=== PATIENT | female | born 1980 | race Caucasian/White ===

== ENCOUNTER 2018-07-03 19:03 | Emergency (ER) | payer BC, SELFPAY ==
[2018-07-03 20:49] LABS: Urine Blood NEGATIVE (NEG); Urine Glucose NEGATIVE (NEG); Urine Protein NEGATIVE (NEG); Urine Specific Gravity 1.025 (1.005-1.030)
[2018-07-03 21:24] LABS: Absolute Lymphocytes (CBC) 2.7 K/uL (0.7-4.9); Absolute Monocytes 0.7 K/uL (0.1-1.3); Absolute Neutrophil 8.6 K/uL (1.8-8.0); Basophils % 0.4 % (0-1.3); Eosinophils % 0.6 % (0-4.4); Lymphocytes % 22.6 % (15.3-44.8); MPV 9.7 fL (7.6-11.3); Monocytes % 5.4 % (3.3-12.3); RBC Red Blood Cell Count 4.45 M/uL (3.86-4.86)
[2018-07-03 21:39] LABS: Albumin 3.6 g/dL (3.4-5.0); Bilirubin Direct 0.1 mg/dL (0-0.2); Bilirubin Total 0.3 mg/dL (0.2-1.0); Potassium 3.4 mmol/L (3.5-5.1); Protein, Total 8.2 g/dL (6.4-8.2)
[2018-07-03] MEDS ORDERED: FENTANYL CITR 100 MCG/2 ML ONE (22:49)
[2018-07-03] MEDS ORDERED: CIPROFLOXACIN 400mg IV 400 MG/200 ML BAG IV ONE (22:49)
[2018-07-03] MEDS ORDERED: ONDANSETRON 4 MG/2 ML VIAL ONE (22:49)
[2018-07-03] MEDS ORDERED: METRONIDAZOLE 500mg IVPB 500 MG/100 ML BAG IV ONE (22:49)
--- NOTE | 2018-07-04 01:28 | ER ---
Nurse's Notes [facility] Name: Elvia Marlow Age: 37 yrs Sex: Female : 1980 Arrival Date: 07/03/2018 Time: 19:05 Bed 5 Private MD: Haresh Chao R Diagnosis: Abdominal tenderness;Other ovarian cysts;Type 2 diabetes mellitus;Left sided colitis;Diverticular disease of intestine;Diverticulitis of large intestine without perforation or abscess without bleeding Presentation: 07/03 19:14 Presenting complaint: Patient states: she is having lower abdominal pain since Monday bb with some diarrhea on Monday denies vomiting pain radiates to back and is intermittent with increased intensity denies burning with urination. Transition of care: patient was not received from another setting of care. Onset of symptoms was June 30, 2018. Risk Assessment: Do you want to hurt yourself or someone else? Patient reports no desire to harm self or others. Initial Sepsis Screen: Does the patient meet any 2 criteria? No. Patient's initial sepsis screen is negative. Does the patient have a suspected source of infection? No. Patient's initial sepsis screen is negative. Care prior to arrival: None. 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 - Social history:: Smoking status: Patient/guardian denies using tobacco, Patient uses alcohol, but reports only rare drinking. Patient/guardian denies using street drugs. - Ebola Screening: : No symptoms or risks identified at this time. - Family history:: not pertinent. Screenin:12 Abuse screen: Denies threats or abuse. Nutritional screening: No deficits noted. ea Tuberculosis screening: No symptoms or risk factors identified. Fall Risk None identified. Assessment: 21:11 General: Appears uncomfortable, Behavior is calm, cooperative, appropriate for age. ea Pain: Complains of pain in suprapubic area Pain radiates to buttocks and pelvis. Neuro: Level of Consciousness is awake, alert, obeys commands, Oriented to person, place, time, situation. Respiratory: Airway is patent Respiratory effort is even, unlabored, Respiratory pattern is regular, symmetrical. GI: Abdomen is non-distended, Bowel sounds present X 4 quads. Abd is soft and non tender X 4 quads. Derm: Skin is pink, warm \T\ dry. Musculoskeletal: Circulation, motion, and sensation intact. 22:36 Reassessment: Patient appears in no apparent distress at this time. Patient and/or tl2 family updated on plan of care and expected duration. Pain level reassessed. Patient is alert, oriented x 3, equal unlabored respirations, skin warm/dry/pink. pt returned from US, no questions or concerns at this time. 07/04 00:00 Reassessment: Patient appears in no apparent distress at this time. Patient and/or tl2 family updated on plan of care and expected duration. Pain level reassessed. Patient is alert, oriented x 3, equal unlabored respirations, skin warm/dry/pink. 01:10 Reassessment: Patient appears in no apparent distress at this time. Patient and/or tl2 family updated on plan of care and expected duration. Pain level reassessed. Patient is alert, oriented x 3, equal unlabored respirations, skin warm/dry/pink. pt denies pain medication at this time due to having to drive herself home. Awaiting CT results. 02:11 Reassessment: Patient appears in no apparent distress at this time. Patient and/or tl2 family updated on plan of care and expected duration. Pain level reassessed. Patient is alert, oriented x 3, equal unlabored respirations, skin warm/dry/pink. pt verbalized understanding of discharge instructions, need for follow up and prescription usage Patient states feeling better. Vital Signs: 07/03 19:19 BP 141 / 86; Pulse 85; Resp 16 S; Temp 97.8(O); Pulse Ox 99% on R/A; Weight 114.76 kg bb (R); Height 5 ft. 2 in. (157.48 cm) (R); Pain 6/10; 22:36 BP 143 / 78; Pulse 74; Resp 18; Pulse Ox 99% on R/A; tl2 23:55 BP 122 / 69; Pulse 77; Resp 18; Pulse Ox 98% on R/A; tl2 07/04 01:00 BP 114 / 68; Pulse 77; Resp 18; Pulse Ox 97% on R/A; tl2 07/03 19:19 Body Mass Index 46.27 (114.76 kg, 157.48 cm) bb ED Course: 07/03 19:05 Patient arrived in ED. sb2 19:05 Haresh Chao MD is Private Physician. sb2 19:16 Triage completed. bb 19:19 Arm band placed on left wrist. Patient placed in waiting room, Patient notified of wait bb time. 21:07 Gala Sue, JESUS is Primary Nurse. ea 21:12 Patient has correct armband on for positive identification. Bed in low position. Call ea light in reach. Side rails up X2. 21:12 Inserted saline lock: 20 gauge in right antecubital area, using aseptic technique. ea Blood collected. 21:38 Andre Davis MD is Attending Physician. guerline 22:08 Oral contrast given. vr 22:31 US Transvaginal Study (Probe) In Process Unspecified. EDMS 02 00:51 CT Abd/Pelvis - W/Contrast In Process Unspecified. EDMS 00:52 CT completed. Patient tolerated procedure well. Patient moved to CT via wheelchair. Patient moved back from CT. 01:00 No provider procedures requiring assistance completed. tl2 01:26 Haresh Chao MD is Referral Physician. guerline 01:27 Lenny Guerin MD is Referral Physician. guerline 02:13 IV discontinued, intact, bleeding controlled, No redness/swelling at site. Pressure tl2 dressing applied. Administered Medications: 07/03 22:47 Drug: Zofran 4 mg Route: IVP; Site: right antecubital; ea 23:30 Follow up: Response: No adverse reaction; Nausea is decreased tl2 22:48 Drug: fentaNYL (PF) 25 mcg Route: IVP; Site: right antecubital; ea 23:30 Follow up: Response: No adverse reaction; Pain is decreased tl2 22:48 Drug: Cipro 400 mg Volume: 200 ml; Route: IVPB; Infused Over: 60 mins; Site: right ea antecubital; 07/04 00:00 Follow up: IV Status: Completed infusion tl2 07/03 23:55 Drug: Flagyl 500 mg Volume: 100 ml; Route: IVPB; Rate: 200 ml/hr; Infused Over: 30 tl2 mins; Site: right antecubital; 07/04 01:00 Follow up: IV Status: Completed infusion tl2 01:46 Not Given (Patient Refused): fentaNYL (PF) 25 mcg IVP once tl2 01:47 Drug: Potassium Effervescent Tablet 25 mEq Route: PO; tl2 02:14 Follow up: Response: No adverse reaction tl2 01:47 Drug: Rocephin - (cefTRIAXone) 1 grams Route: IVPB; Infused Over: 30 mins; Site: right tl2 antecubital; 02:14 Follow up: Response: No adverse reaction; Medication administered at discharge.; IV tl2 Status: Completed infusion 01:48 Drug: TORadol 30 mg Route: IVP; Site: right antecubital; tl2 02:15 Follow up: Response: No adverse reaction; Medication administered at discharge. tl2 Outcome: 01:27 Discharge ordered by MD. cunha 02:13 Discharged to home ambulatory. tl2 02:13 Condition: stable 02:13 Discharge instructions given to patient, Instructed on discharge instructions, follow up and referral plans. medication usage, Demonstrated understanding of instructions, follow-up care, medications, Prescriptions given X 4. 02:15 Patient left the ED. tl2 Signatures: Dispatcher [employer] EDAndre Powell MD MD cha Hagler, Ervin eh Ballard, Brenda, RN RN bb Davis, Victoria vr Knox, Taylor, RN RN tl2 Gala Sue RN RN ea Billeau, Sheri sb2 Corrections: (The following items were deleted from the chart) 07/03 22:37 22:36 Reassessment: Patient appears in no apparent distress at this time. Patient tl2 and/or family updated on plan of care and expected duration. Pain level reassessed. Patient is alert, oriented x 3, equal unlabored respirations, skin warm/dry/pink. pt returned from CT, no questions or concerns at this time. tl2
--- NOTE | 2018-07-04 01:28 | EDPHYS ---
Physician Documentation [facility] Name: Elvia Marlow Age: 37 yrs Sex: Female : 1980 Arrival Date: 07/03/2018 Time: 19:05 Bed 5 Private MD: Haresh Chao R ED Physician Andre Davis HPI: 07/03 22:04 This 37 yrs old Female presents to ER via Ambulatory with complaints of guerline Abdominal Pain. 22:04 The patient presents with abdominal pain in the lower abdomen, in the left lower guerline quadrant. Onset: The symptoms/episode began/occurred 4 day(s) ago. The symptoms do not radiate. Associated signs and symptoms: none. The symptoms are described as constant, crampy. Modifying factors: The symptoms are alleviated by remaining still, the symptoms are aggravated by movement, pressure, touching the area. Severity of pain: At its worst the pain was moderate in the emergency department the pain is unchanged. The patient has experienced similar episodes in the past, a few times. 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 - Social history:: Smoking status: Patient/guardian denies using tobacco, Patient uses alcohol, but reports only rare drinking. Patient/guardian denies using street drugs. - Ebola Screening: : No symptoms or risks identified at this time. - Family history:: not pertinent. ROS: 22:04 Constitutional: Negative for fever, chills, and weight loss, Eyes: Negative for injury, guerline pain, redness, and discharge, ENT: Negative for injury, pain, and discharge, Neck: Negative for injury, pain, and swelling, Cardiovascular: Negative for chest pain, palpitations, and edema, Respiratory: Negative for shortness of breath, cough, wheezing, and pleuritic chest pain, Back: Negative for injury and pain, : Negative for injury, bleeding, discharge, and swelling, MS/Extremity: Negative for injury and deformity, Skin: Negative for injury, rash, and discoloration, Neuro: Negative for headache, weakness, numbness, tingling, and seizure, Psych: Negative for depression, anxiety, suicide ideation, homicidal ideation, and hallucinations, Allergy/Immunology: Negative for hives, rash, and allergies, Endocrine: Negative for neck swelling, polydipsia, polyuria, polyphagia, and marked weight changes, Hematologic/Lymphatic: Negative for swollen nodes, abnormal bleeding, and unusual bruising. 22:04 Abdomen/GI: Positive for abdominal pain, of the left lower quadrant. Exam: 22:04 Constitutional: This is a well developed, well nourished patient who is awake, alert, guerline and in no acute distress. Head/Face: Normocephalic, atraumatic. Eyes: Pupils equal round and reactive to light, extra-ocular motions intact. Lids and lashes normal. Conjunctiva and sclera are non-icteric and not injected. Cornea within normal limits. Periorbital areas with no swelling, redness, or edema. ENT: Nares patent. No nasal discharge, no septal abnormalities noted. Tympanic membranes are normal and external auditory canals are clear. Oropharynx with no redness, swelling, or masses, exudates, or evidence of obstruction, uvula midline. Mucous membranes moist. Neck: Trachea midline, no thyromegaly or masses palpated, and no cervical lymphadenopathy. Supple, full range of motion without nuchal rigidity, or vertebral point tenderness. No Meningismus. Chest/axilla: Normal chest wall appearance and motion. Nontender with no deformity. No lesions are appreciated. Cardiovascular: Regular rate and rhythm with a normal S1 and S2. No gallops, murmurs, or rubs. Normal PMI, no JVD. No pulse deficits. Respiratory: Lungs have equal breath sounds bilaterally, clear to auscultation and percussion. No rales, rhonchi or wheezes noted. No increased work of breathing, no retractions or nasal flaring. Back: No spinal tenderness. No costovertebral tenderness. Full range of motion. Female : Normal external genitalia. Skin: Warm, dry with normal turgor. Normal color with no rashes, no lesions, and no evidence of cellulitis. MS/ Extremity: Pulses equal, no cyanosis. Neurovascular intact. Full, normal range of motion. Neuro: Awake and alert, GCS 15, oriented to person, place, time, and situation. Cranial nerves II-XII grossly intact. Motor strength 5/5 in all extremities. Sensory grossly intact. Cerebellar exam normal. Normal gait. Psych: Awake, alert, with orientation to person, place and time. Behavior, mood, and affect are within normal limits. 22:04 Abdomen/GI: Inspection: abdomen appears normal, Bowel sounds: normal, Palpation: mild abdominal tenderness, moderate abdominal tenderness, in the left lower quadrant. Vital Signs: 19:19 BP 141 / 86; Pulse 85; Resp 16 S; Temp 97.8(O); Pulse Ox 99% on R/A; Weight 114.76 kg bb (R); Height 5 ft. 2 in. (157.48 cm) (R); Pain 6/10; 22:36 BP 143 / 78; Pulse 74; Resp 18; Pulse Ox 99% on R/A; tl2 23:55 BP 122 / 69; Pulse 77; Resp 18; Pulse Ox 98% on R/A; tl2 07/04 01:00 BP 114 / 68; Pulse 77; Resp 18; Pulse Ox 97% on R/A; tl2 07/03 19:19 Body Mass Index 46.27 (114.76 kg, 157.48 cm) MDM: 07/03 21:38 Patient medically screened. [facility] 22:04 Data reviewed: vital signs, nurses notes, lab test result(s), radiologic studies, CT guerline scan, ultrasound. 02 20:41 Order name: Urine Dipstick--Ancillary (enter results); Complete Time: 22:00 ma 07/03 20:41 Order name: Urine --Ancillary (enter results); Complete Time: 22:00 ma 07/03 21:08 Order name: Basic Metabolic Panel; Complete Time: 22:00 07/03 21:08 Order name: CBC with Diff; Complete Time: 22:00 07/03 21:08 Order name: Creatinine for Radiology; Complete Time: 22:00 07/03 21:08 Order name: Hepatic Function; Complete Time: 22:00 07/03 21:08 Order name: Lipase; Complete Time: 22:00 07/03 22:04 Order name: CT Abd/Pelvis - W/Contrast [facility] 07/03 22:04 Order name: US Transvaginal Study (Probe) guerline 07/03 22:28 Order name: Sed Rate; Complete Time: 00:08 guerline 07/03 21:08 Order name: IV Saline Lock; Complete Time: 21:08 ea 07/03 21:08 Order name: Labs collected and sent; Complete Time: 21:29 ea Administered Medications: 22:47 Drug: Zofran 4 mg Route: IVP; Site: right antecubital; ea 23:30 Follow up: Response: No adverse reaction; Nausea is decreased tl2 22:48 Drug: fentaNYL (PF) 25 mcg Route: IVP; Site: right antecubital; ea 23:30 Follow up: Response: No adverse reaction; Pain is decreased tl2 22:48 Drug: Cipro 400 mg Volume: 200 ml; Route: IVPB; Infused Over: 60 mins; Site: right ea antecubital; 07/04 00:00 Follow up: IV Status: Completed infusion tl2 07/03 23:55 Drug: Flagyl 500 mg Volume: 100 ml; Route: IVPB; Rate: 200 ml/hr; Infused Over: 30 tl2 mins; Site: right antecubital; 07/04 01:00 Follow up: IV Status: Completed infusion tl2 01:46 Not Given (Patient Refused): fentaNYL (PF) 25 mcg IVP once tl2 01:47 Drug: Potassium Effervescent Tablet 25 mEq Route: PO; tl2 02:14 Follow up: Response: No adverse reaction tl2 01:47 Drug: Rocephin - (cefTRIAXone) 1 grams Route: IVPB; Infused Over: 30 mins; Site: right tl2 antecubital; 02:14 Follow up: Response: No adverse reaction; Medication administered at discharge.; IV tl2 Status: Completed infusion 01:48 Drug: TORadol 30 mg Route: IVP; Site: right antecubital; tl2 02:15 Follow up: Response: No adverse reaction; Medication administered at discharge. tl2 Disposition: 07/04/18 01:27 Discharged to Home. Impression: Abdominal tenderness, Other ovarian cysts, Type 2 diabetes mellitus, Left sided colitis, Diverticular disease of intestine, Diverticulitis of large intestine without perforation or abscess without bleeding. - Condition is Stable. - Discharge Instructions: Abdominal Pain, Adult, Type 2 Diabetes Mellitus, Diagnosis, Adult, Ovarian Cyst, Abdominal Pain, Adult, [id number], Ovarian Cyst, [id number], Type 2 Diabetes Mellitus, Diagnosis, Adult, [id number]. - Prescriptions for Bentyl 20 mg Oral Tablet - take 1 tablet by ORAL route every 6 hours As needed; 20 tablet. Flagyl 500 mg Oral Tablet - take 1 tablet by ORAL route 4 times per day for 7 days; 28 tablet. Zofran 4 mg Oral Tablet - take 1 tablet by ORAL route every 12 hours As needed; 20 tablet. Cipro 500 mg Oral Tablet - take 1 tablet by ORAL route every 12 hours for 7 days; 14 tablet. - Medication Reconciliation Form, Thank You Letter, Antibiotic Education, Prescription Opioid Use form. - Follow up: Haresh Chao; When: 2 - 3 days; Reason: Recheck today's complaints, Continuance of care, Re-evaluation by your physician. Follow up: Lenny Guerin MD; When: 2 - 3 days; Reason: Recheck today's complaints, Continuance of care, Re-evaluation by your physician. - Problem is new. - Symptoms have improved. Signatures: Dispatcher [employer] EDAndre Powell MD MD cha Ballard, Brenda, RN RN bb Eliza Smith RN RN tl2 Gala Sue RN RN ea Corrections: (The following items were deleted from the chart) 02:15 01:27 07/04/2018 01:27 Discharged to Home. Impression: Abdominal tenderness; Other tl2 ovarian cysts; Type 2 diabetes mellitus; Left sided colitis; Diverticular disease of intestine; Diverticulitis of large intestine without perforation or abscess without bleeding. Condition is Stable. Discharge Instructions: Abdominal Pain, Adult, Type 2 Diabetes Mellitus, Diagnosis, Adult, Ovarian Cyst, Abdominal Pain, Adult, [id number], Ovarian Cyst, [id number], Type 2 Diabetes Mellitus, Diagnosis, Adult, [id number]. Prescriptions for Bentyl 20 mg Oral Tablet - take 1 tablet by ORAL route every 6 hours As needed; 20 tablet, Flagyl 500 mg Oral Tablet - take 1 tablet by ORAL route 3 times per day for 7 days; 21 tablet, Zofran 4 mg Oral Tablet - take 1 tablet by ORAL route every 12 hours As needed; 20 tablet, Cipro 500 mg Oral Tablet - take 1 tablet by ORAL route every 12 hours for 7 days; 14 tablet. and Forms are Medication Reconciliation Form, Thank You Letter, Antibiotic Education, Prescription Opioid Use. Follow up: Haresh Chao; When: 2 - 3 days; Reason: Recheck today's complaints, Continuance of care, Re-evaluation by your physician. Follow up: Lenny Guerin; When: 2 - 3 days; Reason: Recheck today's complaints, Continuance of care, Re-evaluation by your physician. Problem is new. Symptoms have improved. guerline
[2018-07-04] MEDS ORDERED: CEFTRIAXONE/SWI 1gm 1 GM/10 ML SYR ONE (01:50)
[2018-07-04] MEDS ORDERED: KETOROLAC 30 MG/ML INJ ONE (01:50)
[2018-07-04] MEDS ORDERED: POTASSIUM 25 MEQ EFFERV TAB ONE (01:50)
--- NOTE | 2018-07-04 08:09 | RAD REPORT ---
EXAM DESCRIPTION: US - Transvaginal Study Probe - 07/03/2018 10:30 pm CLINICAL HISTORY: Pelvic pain COMPARISON: 2016 FINDINGS: The uterus measures 6 x 3 x 4cm. A fibroid is not seen. Endometrial stripe measures 4 mill imeters The right ovary is enlarged. It contains 2 cysts. The largest measures 2.2 centimeters. Right ovary c ontains blood flow. Left ovary was not seen. Right and left adnexal appear unremarkable No significant free fluid is seen. IMPRESSION: Mild enlargement of the right ovary. 2.2 centimeter right ovarian cyst likely is benign
--- NOTE | 2018-07-04 13:02 | RAD REPORT ---
EXAM DESCRIPTION: CT - Abdomen Pelvis W Contrast CLINICAL HISTORY: 37 years Female ABD PAIN COMPARISON: None. TECHNIQUE: Images were obtained in axial, sagittal and coronal planes. Intravenous contrast was admi nistered. This exam was performed according to our departmental dose-optimization program, which includes autom ated exposure control, adjustment of the mA and/or kV according to patient size and/or less of iterat flores reconstruction technique. FINDINGS: Appendix within normal limits. No bowel obstruction or perforation. Mucosal thickening dis fadi descending proximal sigmoid colon with associated mild diverticular change and mesenteric strandi ng. No evidence for abscess. Suspected fatty change involving the liver. Unremarkable spleen, pancreas, gallbladder, and adrenal g lands bilaterally. Small periumbilical hernia which contains only mesenteric fat. No dilation abdominal aorta. Unremarka ble portal vein. Complex cystic appearance right ovary. Right ovary is prominent in size measuring 5.3 cm in greatest dimension. No abnormalities or lungs bilaterally. No acute osseous abnormality. IMPRESSION: Mild colitis/diverticulitis distal left colon. No bowel obstruction or perforation. Mildly enlarged right ovary with complex cystic appearance noted. Consider correlation with pelvic ul trasound for futher characterization. Appendix within normal limits. Electronically signed by Melissa Tobin MD 07/04/2018 12:59 AM MANAGER [employer]VIRONMENTAL HEALTH Due to temporary technical issues with the PACS/Fluency reporting system, reports are being signed by the in house radiologist as a courtesy to ensure prompt reporting. The interpreting radiologist is f ully responsible for the content of the report.
== END 2018-07-04 02:15 | disposition home or self-care (01) ==
LOC: ER 19:03
DX: K51.50 Left sided colitis without complications (principal); N83.299 Other ovarian cyst, unspecified side; K57.32 Diverticulitis of large intestine without perforation or abscess without bleeding; K57.90 Diverticulosis of intestine, part unspecified, without perforation or abscess without bleeding; E11.9 Type 2 diabetes mellitus without complications; I10 Essential (primary) hypertension; Z88.8 Allergy status to other drugs, medicaments and biological substances
CPT/HCPCS: 36415; 74177; 76830; 80048; 80076; 81003; 81025; 83690; 85025; 85652; 96365; 96367; 96375; 99284; J0696; J0744; J2405; J3010; Q9967

== ENCOUNTER 2018-08-11 14:47 | Emergency (ER) | payer OTHER ==
[2018-08-11] MEDS ORDERED: METHYLPREDNISOLONE 125 MG INJ ONE (15:48)
[2018-08-11] MEDS ORDERED: MORPHINE 4 MG/ML SYR ONE (15:49)
[2018-08-11] MEDS ORDERED: ONDANSETRON 4 MG/2 ML VIAL ONE (15:49)
[2018-08-11 16:08] LABS: Albumin 3.5 g/dL (3.4-5.0); Bilirubin Direct 0.1 mg/dL (0-0.2); Bilirubin Total 0.3 mg/dL (0.2-1.0); Potassium 3.7 mmol/L (3.5-5.1); Protein, Total 8.4 g/dL (6.4-8.2)
[2018-08-11 16:16] LABS: Absolute Lymphocytes (CBC) 2.7 K/uL (0.7-4.9); Absolute Monocytes 0.7 K/uL (0.1-1.3); Absolute Neutrophil 7.3 K/uL (1.8-8.0); Basophils % 0.5 % (0-1.3); Eosinophils % 1.2 % (0-4.4); Hematocrit 35.8 % (36.0-45.0); Lymphocytes % 24.9 % (15.3-44.8); MPV 10.1 fL (7.6-11.3); Monocytes % 6.3 % (3.3-12.3); RBC Red Blood Cell Count 4.31 M/uL (3.86-4.86)
--- NOTE | 2018-08-11 16:54 | RAD REPORT ---
EXAM DESCRIPTION: CT - Abdomen Pelvis W Contrast - 08/11/2018 4:39 pm CLINICAL HISTORY: Abdominal pain/left lower quadrant pain COMPARISON: June 2018 TECHNIQUE: Computed axial tomography of the abdomen pelvis was obtained. 100 cc Isovue-300 was admin istered intravenously. Oral contrast was not requested which limits evaluation of bowel. All CT scans are performed using dose optimization technique as appropriate and may include automated exposure control or mA/KV adjustment according to patient size. FINDINGS: The liver is mildly enlarged. Fatty infiltration present. Spleen, pancreas, adrenal and kidneys appear unremarkable. Diverticula stem from the colon. Mild stranding is present adjacent to the sigmoid colon. No free air . No abscess. Right ovarian cysts. Largest measures 2.4 centimeters. No significant free fluid. Small umbilical hernia contains fat. IMPRESSION: Mild sigmoid diverticulitis
--- NOTE | 2018-08-11 17:16 | ER ---
Nurse's Notes [facility] Name: Elvia Marlow Age: 37 yrs Sex: Female : 1980 Arrival Date: 08/11/2018 Time: 14:50 Bed 25 Private MD: Haresh Chao R Diagnosis: Diverticulitis of large intestine without perforation or abscess without bleeding Presentation: 08/11 14:58 Presenting complaint: Patient states: I have diverticulitis a few weeks ago and the la1 pain got better with the antibiotics but starting today the pain is coming back. Pt had colonoscopy and endoscopy with Dr. Guerra and is awaiting results. Transition of care: patient was not received from another setting of care. Onset of symptoms was August 11, 2018. Risk Assessment: Do you want to hurt yourself or someone else? Patient reports no desire to harm self or others. Initial Sepsis Screen: Does the patient meet any 2 criteria? No. Patient's initial sepsis screen is negative. Does the patient have a suspected source of infection? No. Patient's initial sepsis screen is negative. Care prior to arrival: None. 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 - Social history:: Smoking status: Patient/guardian denies using tobacco. - Ebola Screening: : No symptoms or risks identified at this time. Screenin:50 Abuse screen: Denies threats or abuse. Denies injuries from another. Nutritional rv screening: No deficits noted. Tuberculosis screening: No symptoms or risk factors identified. Fall Risk None identified. Assessment: 15:48 General: Appears in no apparent distress. comfortable, Behavior is calm, cooperative. rv Pain: Complains of pain in abdomen and left lower quadrant. Neuro: Level of Consciousness is awake, alert, obeys commands, Oriented to person, place, time, situation. Cardiovascular: Capillary refill < 3 seconds. Respiratory: Airway is patent. GI: Bowel sounds present X 4 quads. Abd is soft and non tender X 4 quads. : No signs and/or symptoms were reported regarding the genitourinary system. EENT: No signs and/or symptoms were reported regarding the EENT system. Derm: Skin is intact. Musculoskeletal: No signs and/or symptoms reported regarding the musculoskeletal system. 16:28 Reassessment: Patient appears in no apparent distress at this time. Patient and/or rv family updated on plan of care and expected duration. Pain level reassessed. Patient is alert, oriented x 3, equal unlabored respirations, skin warm/dry/pink. TAKEN TO CT SCAN. Vital Signs: 14:58 BP 132 / 76; Pulse 77; Resp 18; Temp 97.5; Pulse Ox 98% on R/A; Weight 113.4 kg; Height la1 5 ft. 2 in. (157.48 cm); 16:09 BP 108 / 63; Pulse 77; Resp 20; Temp 98.0; Pulse Ox 97% ; lt1 17:00 BP 101 / 62 RA; Pulse 78; Resp 16 S; Pulse Ox 100% on R/A; rv 14:58 Body Mass Index 45.73 (113.40 kg, 157.48 cm) la1 ED Course: 14:50 Patient arrived in ED. mr 14:51 Haresh Chao MD is Private Physician. mr 14:59 Triage completed. la1 15:00 Arm band placed on right wrist. la1 15:08 S[facility] Cortez [facility]. jr8 15:08 David Vega MD is Attending Physician. jr8 15:50 Patient has correct armband on for positive identification. Bed in low position. Call rv light in reach. Side rails up X 1. Pulse ox on. NIBP on. 16:06 Initial lab(s) drawn, by me, sent to lab. Inserted saline lock: 20 gauge in left lt1 antecubital area, using aseptic technique. 16:40 CT completed. Patient tolerated procedure well. Patient moved back from CT. vr 16:40 CT Abd/Pelvis - W/Contrast In Process Unspecified. EDMS 17:14 Federico Guerra MD is Referral Physician. jr8 17:24 No provider procedures requiring assistance completed. IV discontinued, bleeding rv controlled, No redness/swelling at site. Pressure dressing applied. Administered Medications: 15:44 Drug: Zofran 4 mg Route: IVP; Site: left antecubital; rv 16:27 Follow up: Response: No adverse reaction rv 15:44 Drug: morphine 4 mg Route: IVP; Site: left antecubital; rv 16:27 Follow up: Response: No adverse reaction; Pain is decreased rv 15:44 Drug: SOLU-Medrol 125 mg Route: IVP; Site: left antecubital; rv 16:27 Follow up: Response: No adverse reaction rv 17:14 Drug: DiFLUcan 150 mg Route: PO; rv 17:25 Follow up: Response: Medication administered at discharge. rv 17:15 Drug: Cipro 500 mg Route: PO; rv 17:25 Follow up: Response: Medication administered at discharge. rv 17:15 Drug: Flagyl 500 mg Route: PO; rv 17:25 Follow up: Response: Medication administered at discharge. rv Outcome: 17:14 Discharge ordered by . jerry 17:24 Discharged to home ambulatory. rv 17:24 Condition: good 17:24 Discharge instructions given to patient, family, Instructed on discharge instructions, follow up and referral plans. medication usage, Demonstrated understanding of instructions, follow-up care, medications, Prescriptions given X 3. 17:24 Patient left the ED. rv Signatures: Dispatcher [employer] [facility] Jude Mey GusmanDolly Josh, PA PA jrAnup Arrington RN RN la1 Dong Ordonez RN RN [facility]
--- NOTE | 2018-08-11 17:17 | EDPHYS ---
Physician Documentation [facility] Name: Elvia Marlow Age: 37 yrs Sex: Female : 1980 Arrival Date: 08/11/2018 Time: 14:50 Bed 25 Private MD: Haresh Chao R ED Physician David Vega HPI: 08/11 15:22 This 37 yrs old Female presents to ER via Ambulatory with complaints of jr8 Abdominal Pain. 15:22 Onset: The symptoms/episode began/occurred acutely, today. The symptoms radiate to left jr8 back. Associated signs and symptoms: none. The symptoms are described as stabbing. Modifying factors: The symptoms are alleviated by nothing, the symptoms are aggravated by movement. Severity of pain: At its worst the pain was moderate in the emergency department the pain is unchanged. It is unknown whether or not the patient has had similar symptoms in the past. The patient has been recently seen by a physician:. Patient recently put on omeprazole and sulfasalazine for UC and gastritis. Stated that during her coloscopy, she was also found to have diverticulosis. Patient had been doing ok till today when she started to have LLQ abdominal pain . 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 - Social history:: Smoking status: Patient/guardian denies using tobacco. - Ebola Screening: : No symptoms or risks identified at this time. ROS: 15:22 Eyes: Negative for injury, pain, redness, and discharge, ENT: Negative for injury, jr8 pain, and discharge, Neck: Negative for injury, pain, and swelling, Cardiovascular: Negative for chest pain, palpitations, and edema, Respiratory: Negative for shortness of breath, cough, wheezing, and pleuritic chest pain, Back: Negative for injury and pain, MS/Extremity: Negative for injury and deformity, Skin: Negative for injury, rash, and discoloration, Neuro: Negative for headache, weakness, numbness, tingling, and seizure. 15:22 Abdomen/GI: Positive for abdominal pain, Negative for nausea, vomiting, and diarrhea, abdominal distension, anorexia, dysphagia, hematemesis, black/tarry stool, rectal pain, rectal bleeding, bowel incontinence, flatulence. Exam: 15:22 Eyes: Pupils equal round and reactive to light, extra-ocular motions intact. Lids and jr8 lashes normal. Conjunctiva and sclera are non-icteric and not injected. Cornea within normal limits. Periorbital areas with no swelling, redness, or edema. ENT: Nares patent. No nasal discharge, no septal abnormalities noted. Tympanic membranes are normal and external auditory canals are clear. Oropharynx with no redness, swelling, or masses, exudates, or evidence of obstruction, uvula midline. Mucous membranes moist. Neck: Trachea midline, no thyromegaly or masses palpated, and no cervical lymphadenopathy. Supple, full range of motion without nuchal rigidity, or vertebral point tenderness. No Meningismus. Cardiovascular: Regular rate and rhythm with a normal S1 and S2. No gallops, murmurs, or rubs. Normal PMI, no JVD. No pulse deficits. Respiratory: Lungs have equal breath sounds bilaterally, clear to auscultation and percussion. No rales, rhonchi or wheezes noted. No increased work of breathing, no retractions or nasal flaring. Back: No spinal tenderness. No costovertebral tenderness. Full range of motion. Skin: Warm, dry with normal turgor. Normal color with no rashes, no lesions, and no evidence of cellulitis. MS/ Extremity: Pulses equal, no cyanosis. Neurovascular intact. Full, normal range of motion. Neuro: Awake and alert, GCS 15, oriented to person, place, time, and situation. Cranial nerves II-XII grossly intact. Motor strength 5/5 in all extremities. Sensory grossly intact. Cerebellar exam normal. Normal gait. 15:22 Abdomen/GI: Inspection: obese Bowel sounds: active, all quadrants, Palpation: soft, in all quadrants, moderate abdominal tenderness, in the left lower quadrant, mass, is not appreciated, rebound tenderness, is not appreciated, voluntary guarding, is not appreciated, involuntary guarding, is not appreciated, no appreciated organomegaly, Indicators: McBurney's point is not tender, Albarran's sign is negative, Rovsing's sign is negative, Liver: no appreciated palpable abnormalities, tenderness, is not appreciated. Vital Signs: 14:58 BP 132 / 76; Pulse 77; Resp 18; Temp 97.5; Pulse Ox 98% on R/A; Weight 113.4 kg; Height la1 5 ft. 2 in. (157.48 cm); 16:09 BP 108 / 63; Pulse 77; Resp 20; Temp 98.0; Pulse Ox 97% ; lt1 17:00 BP 101 / 62 RA; Pulse 78; Resp 16 S; Pulse Ox 100% on R/A; rv 14:58 Body Mass Index 45.73 (113.40 kg, 157.48 cm) la1 MDM: 15:08 Patient medically screened. jr8 15:25 Differential diagnosis: bowel obstruction, diverticulitis, non-specific abd pain, jr8 Pelvic Inflammatory Disease, Pyelonephritis, Ureterolithiasis, urinary tract infection, IBD. 17:13 Data reviewed: vital signs, nurses notes, lab test result(s), radiologic studies, CT jr8 scan. Data interpreted: Pulse oximetry: on room air is 97 %. Interpretation: normal. 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 Response to treatment: the patient's symptoms have markedly improved after treatment. 08/11 15:22 Order name: Basic Metabolic Panel; Complete Time: 16:12 08/11 15:22 Order name: CBC with Diff; Complete Time: 17:04 08/11 15:22 Order name: Creatinine for Radiology; Complete Time: 16:12 08/11 15:22 Order name: Hepatic Function; Complete Time: 16:12 08/11 15:22 Order name: Lipase; Complete Time: 16:12 08/11 15:22 Order name: Urine Microscopic Only 08/11 16:12 Order name: CT Abd/Pelvis - W/Contrast; Complete Time: 17:08/11 16:39 Order name: Urine Dipstick--Ancillary (enter results) ms 08/11 16:39 Order name: Urine --Ancillary (enter results) ms 08/11 15:22 Order name: IV Saline Lock; Complete Time: 15:44 8 08/11 15:22 Order name: Labs collected and sent; Complete Time: 15:44 jr8 08/11 15:22 Order name: Urine Dipstick-Ancillary (obtain specimen); Complete Time: 15:44 jr8 Administered Medications: 15:44 Drug: Zofran 4 mg Route: IVP; Site: left antecubital; rv 16:27 Follow up: Response: No adverse reaction rv 15:44 Drug: morphine 4 mg Route: IVP; Site: left antecubital; rv 16:27 Follow up: Response: No adverse reaction; Pain is decreased rv 15:44 Drug: SOLU-Medrol 125 mg Route: IVP; Site: left antecubital; rv 16:27 Follow up: Response: No adverse reaction rv 17:14 Drug: DiFLUcan 150 mg Route: PO; rv 17:25 Follow up: Response: Medication administered at discharge. rv 17:15 Drug: Cipro 500 mg Route: PO; rv 17:25 Follow up: Response: Medication administered at discharge. rv 17:15 Drug: Flagyl 500 mg Route: PO; rv 17:25 Follow up: Response: Medication administered at discharge. rv Disposition: 08/11/18 17:14 Discharged to Home. Impression: Diverticulitis of large intestine without perforation or abscess without bleeding. - Condition is Stable. - Discharge Instructions: High-Fiber Diet, Diverticulitis. - Prescriptions for Cipro 500 mg Oral Tablet - take 1 tablet by ORAL route every 12 hours for 10 days; 20 tablet. Flagyl 500 mg Oral Tablet - take 1 tablet by ORAL route every 6 hours for 10 days; 40 tablet. Tylenol- Codeine #3 300-30 mg Oral Tablet - take 2 tablets by ORAL route every 6 hours As needed; 20 tablet. - Medication Reconciliation Form, Thank You Letter, Antibiotic Education, Prescription Opioid Use form. - Follow up: Federico Guerra MD; When: 5 - 6 days; Reason: Recheck today's complaints, Continuance of care, Re-evaluation by your physician. - Problem is new. - Symptoms have improved. Signatures: Dispatcher [employer] EDMS Sergio Cortez PA PA jr8 Anup Devi RN RN la1 Dong Ordonez, RN RN rv Corrections: (The following items were deleted from the chart) 17:24 17:14 08/11/2018 17:14 Discharged to Home. Impression: Diverticulitis of large rv intestine without perforation or abscess without bleeding. Condition is Stable. Forms are Medication Reconciliation Form, Thank You Letter, Antibiotic Education, Prescription Opioid Use. Follow up: Federico Guerra; When: 5 - 6 days; Reason: Recheck today's complaints, Continuance of care, Re-evaluation by your physician. Problem is new. Symptoms have improved. jr8
[2018-08-11] MEDS ORDERED: metroNIDAZOLE 500 MG TABLET ONE (17:22)
[2018-08-11] MEDS ORDERED: FLUCONAZOLE 100 MG TAB ONE (17:22)
[2018-08-11] MEDS ORDERED: CIPROFLOXACIN HCL 500 MG TAB ONE (17:23)
[2018-08-11 17:29] LABS: Urine Blood TRACE (NEG); Urine Glucose NEGATIVE (NEG); Urine Protein TRACE (NEG); Urine pH 5.5 (5.0-7.0)
[2018-08-11 18:00] LABS: Urine Amorphous Sediment TRACE /HPF (NONE SEEN); Urine Bacteria 20-50 /HPF (<20); Urine Culture Reflex Order REFLEXED; Urine Mucus 2+ /HPF (NONE SEEN); Urine RBC <5 /HPF (NONE SEEN)
== END 2018-08-11 17:24 | disposition home or self-care (01) ==
LOC: ER 14:47
DX: K57.32 Diverticulitis of large intestine without perforation or abscess without bleeding (principal); I10 Essential (primary) hypertension; E11.9 Type 2 diabetes mellitus without complications; Z88.8 Allergy status to other drugs, medicaments and biological substances
CPT/HCPCS: 36415; 74177; 80048; 80076; 81003; 81015; 81025; 83690; 85025; 87086; 87088; 96374; 96375; 99284; J2405; J2930; Q9967

== ENCOUNTER 2019-04-17 22:20 | Emergency (ER) | payer OTHER ==
[2019-04-17 23:27] LABS: Absolute Lymphocytes (CBC) 5.4 K/uL (0.7-4.9); Basophils % 1.4 % (0-1.3); Hematocrit 36.2 % (36.0-45.0); Lymphocytes % 37.8 % (15.3-44.8); RBC Red Blood Cell Count 4.36 M/uL (3.86-4.86)
[2019-04-17 23:41] LABS: Albumin 3.4 g/dL (3.4-5.0); Bilirubin Total 0.2 mg/dL (0.2-1.0); Potassium 3.3 mmol/L (3.5-5.1); Protein, Total 7.5 g/dL (6.4-8.2)
[2019-04-18 00:23] LABS: Urine Blood NEGATIVE (NEG); Urine Glucose NEGATIVE (NEG); Urine Protein 1+ (NEG); Urine Specific Gravity >1.030 (1.005-1.030); Urine pH 5.5 (5.0-7.0)
--- NOTE | 2019-04-18 00:44 | ER ---
Nurse's Notes [facility] Name: Elvia Marlow Age: 38 yrs Sex: Female : 1980 Arrival Date: 04/17/2019 Time: 22:22 Bed 23 Private MD: Diagnosis: Schneider's palsy Presentation: 04/17 22:25 Presenting complaint: Patient states: " Yesterday I woke up and my eye felt really aj1 swollen, I've had a cold for the past 2 weeks so I thought it was sinus stuff. This morning my lip felt tingly and then it got worse and then my niece said my lip was drooping to the side. " Denies any unilateral numbness. Patient ambulated to triage with a steady gait. Transition of care: patient was not received from another setting of care. Onset of symptoms was April 17, 2019. Risk Assessment: Do you want to hurt yourself or someone else? Patient reports no desire to harm self or others. Initial Sepsis Screen: Does the patient meet any 2 criteria? No. Patient's initial sepsis screen is negative. Does the patient have a suspected source of infection? No. Patient's initial sepsis screen is negative. Care prior to arrival: None. 22:25 Method Of Arrival: Ambulatory aj1 22:25 Acuity: AUREA 3 aj1 Triage Assessment: 22:29 General: Appears in no apparent distress. comfortable, Behavior is calm, cooperative, aj1 appropriate for age. Pain: Denies pain. Neuro: Level of Consciousness is awake, alert, obeys commands, Oriented to person, place, time, situation, Toxicologist are equal bilaterally Moves all extremities. Full function Gait is steady, Speech is normal, Facial droop on right. Cardiovascular: Patient's skin is warm and dry. Respiratory: Airway is patent Respiratory effort is even, unlabored, Respiratory pattern is regular, symmetrical. 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 - Social history:: Smoking status: Patient/guardian denies using tobacco. - Ebola Screening: : Patient denies travel to an Ebola-affected area in the 21 days before illness onset. Screenin:27 Abuse screen: Denies threats or abuse. Nutritional screening: No deficits noted. tr5 Tuberculosis screening: No symptoms or risk factors identified. Fall Risk None identified. Assessment: 23:00 General: Appears in no apparent distress. Behavior is calm, cooperative, appropriate tr5 for age. Pain: Denies pain. Neuro: Reports numbness Tingling. Cardiovascular: Heart tones present Capillary refill < 3 seconds Pulses are all present. Edema is absent. Respiratory: Airway is patent Respiratory effort is even, unlabored, Respiratory pattern is regular, symmetrical. GI: No signs and/or symptoms were reported involving the gastrointestinal system. : No signs and/or symptoms were reported regarding the genitourinary system. EENT: Reports Eye swelling. . Derm: No signs and/or symptoms reported regarding the dermatologic system. Musculoskeletal: No signs and/or symptoms reported regarding the musculoskeletal system. Vital Signs: 22:29 BP 136 / 98; Pulse 96; Resp 18; Temp 98.3; Pulse Ox 98% on R/A; Weight 109.32 kg (R); aj1 Height 5 ft. 2 in. (157.48 cm) (R); 22:29 Body Mass Index 44.08 (109.32 kg, 157.48 cm) aj1 ED Course: 22:22 Patient arrived in ED. cl3 22:28 Triage completed. aj1 22:29 Arm band placed on Patient placed in an exam room. aj1 22:49 Juan Sinha PA is PHCP. [facility] 22:49 Hernando Calderón MD is Attending Physician. [facility] 23:05 Pb Hale, JESUS is Primary Nurse. tr5 23:27 Bed in low position. Call light in reach. Side rails up X 1. tr5 04/18 00:04 CT completed. Patient tolerated procedure well. Patient moved to CT via wheelchair. Patient moved back from CT. 00:09 CT Head Brain wo Cont In Process Unspecified. EDMS 00:43 Corey Medrano MD is Referral Physician. [facility] 00:53 No provider procedures requiring assistance completed. Patient did not have IV access tr5 during this emergency room visit. Administered Medications: No medications were administered Outcome: 00:44 Discharge ordered by . derek 00:53 Discharged to home ambulatory. tr5 00:53 Condition: stable 00:53 Discharge instructions given to patient, Instructed on discharge instructions, follow up and referral plans. medication usage, Demonstrated understanding of instructions, follow-up care, medications, Prescriptions given X 2. 00:54 Patient left the ED. tr5 Signatures: Dispatcher [employer] Alysia Turk, JESUS RN aj1 Juan Sinha PA PA Ross Pat Tommie, RN RN tr5 Emmanuel Richard cl3
--- NOTE | 2019-04-18 00:45 | EDPHYS ---
Physician Documentation [facility] Name: Elvia Marlow Age: 38 yrs Sex: Female : 1980 Arrival Date: 04/17/2019 Time: 22:22 Bed 23 Private MD: ED Physician Hernando Calderón HPI: 04/17 23:07 This 38 yrs old Female presents to ER via Ambulatory with complaints of Eye jmm Swelling. 23:08 The patient's problem is reported as a facial droop, on left. Onset: The jmm symptoms/episode began/occurred yesterday. Duration: This was a single incident. This is a 38 year old female with a history of dm, htn that presents to the ED with complaints of tingling to the left side of her face, denies weakness to the rest of her body. Symptoms began yesterday. Patient states she was told she had a droop earlier today. . 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 - Social history:: Smoking status: Patient/guardian denies using tobacco. - Ebola Screening: : Patient denies travel to an Ebola-affected area in the 21 days before illness onset. ROS: 23:08 Constitutional: Negative for fever, chills, and weight loss, Cardiovascular: Negative jmm for chest pain, palpitations, and edema, Respiratory: Negative for shortness of breath, cough, wheezing, and pleuritic chest pain. 23:08 Neuro: Positive for facial droop. 23:08 All other systems are negative. Exam: 23:08 Constitutional: This is a well developed, well nourished patient who is awake, alert, jmm and in no acute distress. 23:08 Eyes: EOMI, no conjunctival erythema appreciated ENT: Moist Mucus Membranes Neck: Trachea midline, Supple Chest/axilla: Normal chest wall appearance and motion. Cardiovascular: Regular rate and rhythm. No edema appreciated Respiratory: Normal respirations, no respiratory distress appreciated Abdomen/GI: Non distended, soft Back: Normal ROM Skin: General appearance color normal MS/ Extremity: Moves all extremities, no obvious deformities appreciated, no edema noted to the lower extremities 23:08 Head/face: Noted is left sided facial droop. 23:08 Neuro: Orientation: is normal, Mentation: is normal, Memory: is normal, Cerebellar function: normal finger to nose testing, Gait: is steady. 23:08 Neuro: left sided facial droop appreciated. 23:08 Psych: Behavior/mood is pleasant, cooperative. Vital Signs: 22:29 BP 136 / 98; Pulse 96; Resp 18; Temp 98.3; Pulse Ox 98% on R/A; Weight 109.32 kg (R); aj1 Height 5 ft. 2 in. (157.48 cm) (R); 22:29 Body Mass Index 44.08 (109.32 kg, 157.48 cm) 1 MDM: 22:51 Patient medically screened. [facility] 04/18 00:42 Data reviewed: vital signs, nurses notes. Counseling: I had a detailed discussion with [facility] the patient and/or guardian regarding: the historical points, exam findings, and any diagnostic results supporting the discharge/admit diagnosis, lab results, radiology results, the need for outpatient follow up, to return to the emergency department if symptoms worsen or persist or if there are any questions or concerns that arise at home. ED course: PE findings do not spare the eyebrow. Appear consistent with [place] Palsy. Ct negative. Patient advised to follow up with neuro for reevaluation. Advised to closely monitor bgl due to steroids. patient otherwise given strict return precautions. patient understood and agrees with the plan of care. . 04/17 23:00 Order name: CBC with Diff; Complete Time: 23:45 [facility] 04/17 23:00 Order name: CMP; Complete Time: 23:45 [facility] 04/17 23:00 Order name: CT Head Brain wo Cont [facility] 04/17 23:00 Order name: Urine Dipstick-Ancillary (obtain specimen); Complete Time: 00:05 [facility] 04/18 00:12 Order name: Urine Dipstick--Ancillary (enter results); Complete Time: 00:31 2 04/18 00:12 Order name: Urine --Ancillary (enter results); Complete Time: 00:31 mw2 04/17 23:00 Order name: Urine Test (obtain specimen); Complete Time: 00:05 derek Administered Medications: No medications were administered Disposition: 06:58 Co-signature as Attending Physician, Hernando Calderón MD I agree with the assessment and tw4 plan of care. Disposition: 04/18/19 00:44 Discharged to Home. Impression: Schneider's palsy. - Condition is Stable. - Discharge Instructions: Schneider Palsy, Adult. - Prescriptions for Valtrex 1 g Oral Tablet - take 1 tablet by ORAL route every 8 hours for 7 days; 21 tablet. Prednisone 20 mg Oral Tablet - take 2 tablets by ORAL route once daily 12 days Please take 3 tabs by mouth daily for 3 days, then take 2 tabs by mouth daily for 3 days, then take 1 tab by mouth daily for 3 days, then take 1/2 tab by mouth daily for 3 days; 20 tablet. - Medication Reconciliation Form, Thank You Letter, Antibiotic Education, Prescription Opioid Use form. - Follow up: Corey Medrano MD; When: 2 - 3 days; Reason: Recheck today's complaints, Continuance of care, Re-evaluation by your physician. Signatures: Dispatcher [employer] EDAlysia Monge RN RN aj1 Juan Sinha PA PA Hernando Hernandez MD MD tw4 Pb Hale RN RN tr5 Corrections: (The following items were deleted from the chart) 00:54 00:44 04/18/2019 00:44 Discharged to Home. Impression: Schneider's palsy. Condition is tr5 Stable. Forms are Medication Reconciliation Form, Thank You Letter, Antibiotic Education, Prescription Opioid Use. Follow up: Corey Medrano; When: 2 - 3 days; Reason: Recheck today's complaints, Continuance of care, Re-evaluation by your physician. derek
--- NOTE | 2019-04-18 12:33 | RAD REPORT ---
EXAM DESCRIPTION: CT - Head Brain Wo Cont - 04/18/2019 3:43 am CLINICAL HISTORY: Facial droop TECHNIQUE: Multiple axial CT images of the brain were performed followed by sagittal and coronal rec onstructed images. The CT study is performed according to ALARA (as low as reasonably achievable) or ALARA/IMAGE GENTLY, with automatic adjustment of mA and/or kV according to patient size. Performed on: 04/17/2019 at 11:16 PM COMPARISON: None. FINDINGS: There is no evidence of mass, acute mass effect or midline shift. There are no acute extra -axial fluid collections. There is no evidence of acute intracranial hemorrhage. The cerebral sulci and ventricles are normal in size and configuration. There are no focal abnormal areas of increased or decreased attenuation. There is trace mucosal thickening of the right maxillary sinus. The mastoid air cells are clear. The orbital contents are grossly unremarkable. No acute osseous abnormalities are identified. No focal soft tissue abnormalities are identified. IMPRESSION: There is no evidence of acute intracranial pathology. Electronically signed by: Shruti Jalloh DO 04/18/2019 12:27 AM FIRE DISPATCHER Due to temporary technical issues with the PACS/Fluency reporting system, reports are being signed by the in house radiologist as a courtesy to ensure prompt reporting. The interpreting radiologist is f ully responsible for the content of the report.
== END 2019-04-18 00:54 | disposition home or self-care (01) ==
LOC: ER 22:20
DX: G51.0 Bell's palsy (principal); I10 Essential (primary) hypertension; E11.9 Type 2 diabetes mellitus without complications; Z88.8 Allergy status to other drugs, medicaments and biological substances
CPT/HCPCS: 36415; 70450; 80053; 81003; 81025; 85025; 99284

== ENCOUNTER 2024-03-28 09:32 | Day surgery (SDC) | payer BC ==
[2024-03-26 11:22] LABS: Absolute Eosinophils 0.1 K/uL (0-0.5); Absolute Lymphocytes (CBC) 2.7 K/uL (0.7-4.9); Absolute Monocytes 0.5 K/uL (0.1-1.3); Absolute Neutrophil 5.8 K/uL (1.8-8.0); Basophils % 0.4 % (0-1.3); Eosinophils % 1.3 % (0-4.4); Hematocrit 35.3 % (36.0-45.0); Hemoglobin 11.6 g/dL (12.0-15.0); Lymphocytes % 29.9 % (15.3-44.8); MCH 29.2 pg (27.0-35.0); MCHC 32.8 g/dL (32.0-36.0); MPV 9.8 fL (7.6-11.3); Neutrophils % 63.4 % (41.7-73.7); Platelets 252 thou/uL (152-406); RBC Red Blood Cell Count 3.96 M/uL (3.86-4.86); Red Cell Distribution Width 14.9 % (12.1-15.2)
[2024-03-26 11:25] LABS: Specific Gravity 1.016 (1.005-1.030); Sqamous Epithelial <5 /HPF (None Seen); Urine Bacteria <20 /HPF (<20); Urine Bilirubin NEGATIVE (Negative); Urine Blood Negative (Negative); Urine Clarity Extremely Turbid (Clear); Urine Color Light-Yellow (Yellow); Urine Crystals Unidentified Few /HPF (None Seen); Urine Culture Reflex Order REFLEXED; Urine Glucose NEGATIVE (Negative); Urine Ketones NEGATIVE (Negative); Urine Microscopic Reflex YN ORDER UMIC; Urine Mucus Slight /HPF (None Seen); Urine Nitrite NEGATIVE (Negative); Urine Protein TRACE (Negative); Urine RBC <5 /HPF (None Seen); Urine Urobilinogen Normal (Normal); Urine WBC Clump Rare /HPF (None Seen); Urine Yeast (Budding) Trace /HPF (None Seen)
[2024-03-26 11:36] LABS: Anion Gap 8.6 mEq/L (5.0-15.0); Potassium 3.6 mEq/L (3.5-5.1)
[2024-03-28] MEDS ORDERED: CEFAZOLIN SODIUM 1 GM/VIAL ONE (10:09)
[2024-03-28] MEDS ORDERED: NA CHLORIDE 0.9% 1,000 ML ONE (10:10)
[2024-03-28] MEDS ORDERED: FENTANYL CITR 100 MCG/2 ML ONE ×2 (10:53→14:02)
[2024-03-28] MEDS ORDERED: MIDAZOLAM HCL 2 MG/2 ML INJ ONE (10:53)
[2024-03-28] MEDS ORDERED: KETAMINE HCL IN 0.9 % NACL 50 MG/5 ML SYRINGE IV ONE (10:53)
[2024-03-28] MEDS ORDERED: LIDOCAINE 1% MPF 5 ML VIAL ONE (10:53)
[2024-03-28] MEDS ORDERED: dexAMETHasone 10 MG/ML VIAL ONE (10:53)
[2024-03-28] MEDS ORDERED: propofoL 200 MG/20 ML VIAL IV ONE (10:53)
[2024-03-28] MEDS ORDERED: ROCURONIUM 50 MG/5 ML VIAL IV ONE (10:53)
[2024-03-28] MEDS ORDERED: ONDANSETRON 4 MG/2 ML VIAL ONE (10:53)
[2024-03-28] MEDS: SCOPOLAMINE HYDROBROMIDE PATCH TD ONE (11:42)
--- NOTE | 2024-03-28 11:57 | EKG ---
Test Date: 2024-03-26 Test Time: 11:55:46 Downstairs Maid: LUIS MEASUREMENT RESULTS: Intervals: Rate: 73 NC: 192 QRSD: 100 QT: 422 QTc: 464 [place]: P: 33 NC: 192 QRS: -24 T: 9 INTERPRETIVE STATEMENTS: Normal sinus rhythm T wave abnormality, consider anterior ischemia Prolonged QT Abnormal ECG No previous ECG available for comparison Electronically Signed On 03-28-24 11:56:15 LARRY CAR OPERATOR by Aurelio Caldera
[2024-03-28] MEDS: CEFAZOLIN SODIUM 2 GM/VIAL ONE (12:54)
[2024-03-28] MEDS: BUPIVACAINE 0.25% PF 30 ML VIAL ONE (12:55)
[2024-03-28] MEDS ORDERED: EPHEDRINE SULF 50 MG/ML VIAL ONE (13:10)
[2024-03-28] MEDS: Ringers Lactate 1,000 ML IV ONE (13:40)
[2024-03-28] MEDS ORDERED: NS 0.9% VIAL 10 ML ONE (14:25)
[2024-03-28] MEDS ORDERED: VECURONIUM 10 MG/VIAL IV ONE (14:25)
[2024-03-28] MEDS ORDERED: KETOROLAC 30 MG/ML INJ ONE (14:42)
[2024-03-28] MEDS ORDERED: NEOSTIGMINE 1 MG/ML -10 ML VIAL ONE (14:58)
[2024-03-28] MEDS ORDERED: GLYCOPYRROLATE 0.2 MG/ML SYR ONE (14:58)
[2024-03-28 17:00] VITALS: TEMP 97.7; O2SAT 98
[2024-03-28] MEDS: HYDROCODONE/APAP 5/325 MG TAB ONE (17:16)
[2024-03-28] MEDS: NA CHLORIDE 0.9% 500 ML ONE (19:10)
[2024-03-28] MEDS: IBUPROFEN 400 MG TAB ONE (19:47)
[2024-03-28] MEDS: IBUPROFEN 200 MG TAB PO ONE (19:48)
[2024-03-28 20:26] VITALS: BP 105/80
--- NOTE | 2024-04-01 13:38 | OP ---
Date of Procedure: 03/28/2024 Surgeon: Maday Figueroa MD Merchant Seaman: Emily Pineda Preoperative Diagnoses: Menorrhagia with irregular cycle (AUB-O/A/E), history of left ovarian cyst, iron-deficiency anemia, and right ovarian cyst. Postoperative Diagnoses: Complex right ovarian cyst, bilateral hydrosalpinges, omental adhesions to the anterior abdominal wall, with sigmoid and omental adhesions to the left tube. Endometriosis on t he uterus and on the tube. Procedures Performed: 1.Total laparoscopic hysterectomy and bilateral salpingectomy. 2.Right oophorectomy. 3.Endometriosis excision. 4.Lysis of adhesions in the sigmoid colon and the omentum from the left tube. 5.Omental adhesions at the level of the umbilicus, which were taken down. The lysis of adhesions to ok at least 50% of this case. Estimated Blood Loss: 50. Urine Output: 100. Fluids: 1500. Specimens: Uterus, bilateral tubes, and right ovary. Endometriosis specimen. Findings: Endometriosis on the uterus. Bilateral tubes had significant hydrosalpinges. There was s ome the right ovarian cyst appeared to be complex and not an endometrioma, more suspicious for a complex mass as she had one on the contralateral side. I deemed it most appropriate to remove the ovary instead of attempting . The vaginal cuff was closed with the help of x4 0 PDS sutures. Indication: The patient is a 43-year-old for her left lower quadrant pain, left oophorect mike. She has done well, over time progressively her bleeding has worsened, and that has caused her i nhan-deficiency anemia. Her hemoglobin was low at 10.6 and taking on supplements. Transvaginal ultra sound was performed, followed by hysteroscopy, hysteroscopic sampling of the endometrial cavity witho ut any atypia or malignancy . She does have risk factors for type 1 uterine cancer and the refore, the test was performed. There were 2 right ovarian cysts that appeared to be contiguous to each other . Procedure In Detail: The patient was counseled about observation, surgery, medical management and sh e wanted to proceed with surgical management and this included endometriosis excision, sandra ateral salpingectomy with ablation, any other indicated procedure as deemed necessary. After she was medically cleared, she was consented and brought to the OR. In the preoperative area, after she was re-consented, taken back to the OR. 3 g of Ancef was given. She was intubated on the operating table, placed in the dorsal lithotomy pos ition after the vulva, vagina, and perineum were prepped and draped in a sterile fashion. Positionin g was checked. Arms were tucked by the side. SCDs were started. Time-out was done. Procedure star rd. The cervix was very tiny and a small cup was used in place after dilating the cervix. 16- Maltese Fuentes was placed to drain the bladder and attached to the drainage bag. 1 cm supraumbilical incision was made with the scalpel using open laparoscopy technique. Fascia was incised and tagged with 0 Vicryl sutures on both sides. Brenna introduced after entering the periton eal cavity in a blunt fashion. After adequate insufflation, site of entry was checked and there was significant omental adhesion. A 5 left lower quadrant and a left upper quadrant ports were placed under direct vision. Under direc t visualization, with the LigaSure, omental adhesions were taken down. Lysis of omental adhesions: The omental adhesions were taken down significantly taking do wn all the adhesions right lower quadrant ports were placed under direct vision. The rony ent was placed in Trendelenburg position. The bowel was packed into the upper abdomen and after visu alizing the lower abdomen, there were significant adhesions to the left lateral wall and the tube. Lysis of tubal and ovarian adhesions: These adhesions were taken down by dissection with scissors as well as LigaSure as needed, and above the level of the pelvic brim. All at the pelvic br im and down towards the left pelvic sidewall. The ureters were identified laterally and protected. tubal adhesions were then taken down from the lateral aspect. The mesosalpinx was opened above the level of the round ligament and taken down parallel to the distal portion of the tube. The tube after being completely dissected and from the bowel was taken down with the help of belinda siu LigaSure. The round ligament was taken down as well and the anterior broad ligament opened up to utero-ovarian to create a bladder flap. Similar dissection was performed on the opposite side after taking down the posterior peritoneum and the mesosalpinx on the left side. The attention was directe d to the right side. The window was made dissecting parallel to the IP all the way betwee n the ureter and the window was made in the medial aspect of the broad ligament. The pedicle was iso lated, cauterized and cut with the help of LigaSure. endometriosis was excised as well. Then, the round ligament was taken down and the posterior and anterior broad ligaments were opened up sharply, and bladder flap was created and bladder was dissected inferiorly posteriorly, dissection t aken to the uterosacral. The vessels were taken down with the help of the bipolar and monopolar, and cardinal ligament was done with the same bipolar cautery. Circumferential colpotomy performed with monopolar hook blade and specimen pulled out through the vagina carefully without rupturing the cyst. Vaginal cuff was then elevated and closed in both angles with 0 PDS and then two PDS sutures were magdalena yury in a [id number] fashion to get a full apposition of the entire vaginal cuff. Once there was excellent support and closure, then the sigmoid colon was checked for integrity . All the pedicles were checked. Hemostasis was ensured. The gas was desufflated. Ports were removed under direct vision. Fascia and the skin were injected with 0.25% Marcaine at the beginning and at the end of the case. After desufflating the umbilical trocar was removed and fascia at the umbilicus closed with tagged 0 Vicryl sutures and tied to each other . All skin incisions were clos ed with interrupted 4-0 Monocryl sutures. The vaginal occluder was removed. Instrument, needle, and sponge counts were correct and she was taken back from the OR after extubating to the PACU. Spouse was debriefed about her condition, and she will follow up in 1 week after voiding trial. JEANNIE Voice ID: [id number] Report ID: [id number]
== END 2024-03-28 21:22 | disposition home or self-care (01) ==
LOC: OR 09:32
PROVIDERS: ATTEND Obstetrics & Gynecology
PROC: 0UT74ZZ Resection of Bilateral Fallopian Tubes, Percutaneous Endoscopic Approach (ICD-10-PCS; 2024-03-28)
PROC: 0UT04ZZ Resection of Right Ovary, Percutaneous Endoscopic Approach (ICD-10-PCS; 2024-03-28)
PROC: 0DNU4ZZ Release Omentum, Percutaneous Endoscopic Approach (ICD-10-PCS; 2024-03-28)
PROC: 0UB94ZZ Excision of Uterus, Percutaneous Endoscopic Approach (ICD-10-PCS; 2024-03-28)
PROC: 0UB54ZZ Excision of Right Fallopian Tube, Percutaneous Endoscopic Approach (ICD-10-PCS; 2024-03-28)
PROC: 0DNN4ZZ Release Sigmoid Colon, Percutaneous Endoscopic Approach (ICD-10-PCS; 2024-03-28)
PROC: 0UT94ZZ Resection of Uterus, Percutaneous Endoscopic Approach (ICD-10-PCS; principal; 2024-03-28 10:30)
DX: N92.1 Excessive and frequent menstruation with irregular cycle (principal); D50.9 Iron deficiency anemia, unspecified; E11.9 Type 2 diabetes mellitus without complications; K66.0 Peritoneal adhesions (postprocedural) (postinfection); N83.201 Unspecified ovarian cyst, right side; N80.00 Endometriosis of the uterus, unspecified; N80.201 Endometriosis of right fallopian tube, unspecified depth; N80.03 Adenomyosis of the uterus; N83.8 Other noninflammatory disorders of ovary, fallopian tube and broad ligament; N70.91 Salpingitis, unspecified; A42.9 Actinomycosis, unspecified
CPT/HCPCS: 58571; 49329; 58662; 44180; 93005; 87088; 85025; 81001; 87086; 80048; 36415; 86900; 86850; 81025; 86901; 82947 ×2; 88307; A4216; J2704; J2710; J2003; J2250; J3010 ×2; J1100; J2405; J7120; J7040; J7030; J0690; 88305